=== PATIENT | male | born 1965 | race Caucasian/White ===

== ENCOUNTER 2023-10-03 12:38 | Emergency (ER) | payer SELFPAY ==
[2023-10-03 12:50] VITALS: BP 122/72; PULSE 92; RESP 18; TEMP 36.8; O2SAT 98
--- NOTE | 2023-10-03 13:08 | ED.WOUNDLAC ---
HPI - Wound/Laceration General Chief Complaint: Wound/Laceration Stated Complaint: Dog bite left hand Time Seen by Provider: 10/03/23 13:09 Source: patient, family, RN notes reviewed and old records reviewed Mode of arrival: ambulatory Limitations: no limitations History of Present Illness HPI narrative: 58 year old male accompanied by spouse with complaints of dog bite to his left lateral thumb and 2 puncture wounds to left proximal knuckle index finger which occurred just prior to a rrival when tried to separate his dogs who were fighting. Patient reports that he rinsed area with warm soapy water prior to arrival bleeding is controlled. Patient reports that his Tetanus is up to date. Patient has full mobility of all fingers with strong left radial pulse. Onset (ago): hour(s) (today) Location: other (left thumb and left proximal knuckle index finger) Patient tetanus UTD: Yes Treatments prior to arrival: other (rinsed with soap and water) Related Data Home Medications Medication Instructions Recorded Confirmed citalopram 40 mg tablet 40 mg PO DAILY 10/03/23 10/03/23 Allergies Allergy/AdvReac Type Severity Reaction Status Date / Time No Known Allergies Allergy Verified 10/03/23 13:19 Review of Systems Review of Systems: CONSTITUTIONAL: Denies fever, chills, or sweats. CARDIOVASCULAR: Denies chest pain, palpitations, or edema. RESPIRATORY: Denies cough or dyspnea. SKIN: Reports dog bite to left thumb linear 2.2 cm on side of thumb and 2 puncture wounds left index proximal knuckle MUSCULOSKELETAL: Denies musculoskeletal pain NEUROLOGIC: Denies numbness, or weakness. All systems reviewed & are unremarkable except as noted in HPI and below PMFSH Past Medical History Medical History (Updated 10/04/23 @ 00:03 by Enrrique Khan) Anxiety Social History Social History (Updated 10/03/23 @ 13:36 by Marilia Carmona NP) Smoking packs per day: 1 Smoking cigarettes per day: 20.0 Smoking status: Current every day smoker Living arrangements: with family Gender identity (if verbalized by the patient): Male Comments At time of signature, agree with nursing past medical, surgical, social and family history. There is no relevant family history pertinent to the presenting complaint Exam Narrative: GENERAL: Well-appearing, well-nourished, and in no acute distress. HEAD: Normocephalic, atraumatic. NECK: Supple.no lymphadenopathy CHEST: Clear to auscultation. No respiratory distress.SAO2 98% on room air HEART: Regular rate and rhythm. No murmur heard. Normal peripheral pulses. EXTREMITIES: Normal range of motion. No edema. SKIN: Warm, dry, no rash. Reports linear laceration to side of left thumb from dog bite 2.2 cm in length with bleeding controlled, 2 puncture parsons to proximal knuckle of left index finger.full mobility of left hand with stron left radial pulse no acute edema to hand. NEURO: No focal deficits. Alert and oriented x3. Course Course Level of Care: Express Care Visit Vital Signs Vital signs: Vital Signs Temperature 36.8 C 10/03/23 12:50 Pulse Rate 92 10/03/23 12:50 Respiratory Rate 18 10/03/23 12:50 Blood Pressure 122/72 10/03/23 12:50 Pulse Oximetry 98 10/03/23 12:50 Oxygen Delivery Room Air 10/03/23 12:50 Temperature 36.8 C 10/03/23 12:50 Pulse Rate 92 10/03/23 12:50 Respiratory Rate 18 10/03/23 12:50 Blood Pressure 122/72 10/03/23 12:50 Pulse Oximetry 98 10/03/23 12:50 Oxygen Delivery Room Air 10/03/23 12:50 Procedures Laceration hand: Date: 10/03/23 Time: 13:15 Site: hand Side (If applicable): left Size (cm): 2.2 Description: linear Depth: simple, single layer Local Anesthetic: none Pre-repair: wound explored and other (wound care solution) ====== Skin Level ====== Skin layer closed with: steri strips ====== Subcutaneous Layer ======
== END 2023-10-03 13:35 | disposition home or self-care (01) ==
PROVIDERS: Emergency Provider Registered Nurse
DX: S61.452A Open bite of left hand, initial encounter (principal); F17.210 Nicotine dependence, cigarettes, uncomplicated; Z79.899 Other long term (current) drug therapy; W54.0XXA Bitten by dog, initial encounter
CPT/HCPCS: 99212; G0463